=== PATIENT | female | born 1980 | race Two or more races ===

== ENCOUNTER 2022-08-22 05:45 | Day surgery (SDC) | payer OTHER ==
[~2022-08-22 05:45] MED LIST: CLONAZEPAM1 MG PO; COZAAR100 MG PO; SINGULAIR 10MG10 MG PO; VERELAN PM100 MG PO
== END 2022-08-22 13:25 | disposition home or self-care (01) ==
LOC: CIR.AMB 05:45
PROVIDERS: ATTEND Surgery
DX: K80.10 Calculus of gallbladder with chronic cholecystitis without obstruction (principal); Z20.822 Contact with and (suspected) exposure to COVID-19; Z88.8 Allergy status to other drugs, medicaments and biological substances; I10 Essential (primary) hypertension